=== PATIENT | male | born 1955 | race Native Hawaiian/Other Pacific Islander ===

== ENCOUNTER 2019-09-04 09:05 | Day surgery (SDC) | payer OTHER | END 2019-09-04 10:59 | disposition home or self-care (01) | LOC: OR 09:05 | PROC: 3E0R33Z Introduction of Anti-inflammatory into Spinal Canal, Percutaneous Approach (ICD-10-PCS; principal; 2019-09-04) | PROC: B01BYZZ Fluoroscopy of Spinal Cord using Other Contrast (ICD-10-PCS; 2019-09-04) | DX: M51.16 Intervertebral disc disorders with radiculopathy, lumbar region (principal) | CPT/HCPCS: J1020 ==

== ENCOUNTER 2019-10-09 08:09 | Day surgery (SDC) | payer OTHER | END 2019-10-09 09:30 | disposition home or self-care (01) | LOC: OR 08:09 | PROC: 3E0R33Z Introduction of Anti-inflammatory into Spinal Canal, Percutaneous Approach (ICD-10-PCS; principal; 2019-10-09) | PROC: B01BYZZ Fluoroscopy of Spinal Cord using Other Contrast (ICD-10-PCS; 2019-10-09) | DX: M51.16 Intervertebral disc disorders with radiculopathy, lumbar region (principal) | CPT/HCPCS: J1020 ==